=== PATIENT | female | born 1965 | race Caucasian/White ===

== ENCOUNTER → 2025-02-25 12:50 | Outpatient (CLI) | payer BC, SELFPAY ==
--- NOTE | 2025-02-25 12:53 | DI.MG.S_ITS ---
MM screening mammo BI: 02/25/2025. BI-RADS: 2 CLINICAL: 59-year old female for bilateral screening mammogram. No Tyrer-Cuzick risk score calculation due to the patient's personal history of breast cancer. Patient reports a history of left breast carcinoma diagnosed at age 52. Status-post left lumpectomy. No first-degree family history of breast cancer. PRIOR EXAMS: 01/25/2024, 11/01/2022, 10/29/2021. MAMMOGRAPHY TECHNIQUE: 2D and 3D (tomosynthesis) digital mammographic views obtained, with additional images as needed for full coverage. Current study was also evaluated with a Computer Aided Detection (CAD) system. DENSITY C. The breasts are heterogeneously dense, which may obscure small masses. MAMMOGRAPHY FINDINGS Right: Biopsy marker present on the right. There are no suspicious masses, calcifications, or other findings in the breast. Left: Benign-appearing post-surgical changes noted on the left. There are no suspicious masses, calcifications, or other findings in the breast. IMPRESSION: * No evidence of malignancy with benign findings. RECOMMENDATIONS Bilateral * Annual screening mammography. OVERALL ASSESSMENT CATEGORY BI-RADS-2: Benign. [employer] recommends annual screening mammography beginning at age 40 for women with average risk of breast cancer. ELECTRONICALLY SIGNED: Kandi Martin M.D. on 02/25/2025 at 03:03:11 PM PT Interpreting Station ID: [id number]
== END ==
LOC: MAMMO 12:52
PROVIDERS: PCP Family Medicine; Referring Provider Family Medicine; Visit Provider Family Medicine
DX: Z12.31 Encounter for screening mammogram for malignant neoplasm of breast (principal); Z85.3 Personal history of malignant neoplasm of breast; R92.333 Mammographic heterogeneous density, bilateral breasts
CPT/HCPCS: 77063; 77067